=== PATIENT | male | born 1995 | race Caucasian/White ===

== ENCOUNTER 2022-02-25 11:19 | Emergency (ER) | payer OTHER, SELFPAY ==
[2022-02-25 13:15] VITALS: BP 131/86; PULSE 97; RESP 18; TEMP 37.4; O2SAT 100; BMI 27.3
[2022-02-25 13:33] LABS: UTC Strep Screen (Rapid) Negative (Negative)
[2022-02-25 13:34] LABS: UTC Influenza A Antigen Positive (Negative); UTC Influenza B Antigen Negative (Negative)
--- NOTE | 2022-02-25 13:34 | EXP.UTC ---
Discharge Plan Disposition Patient Disposition: Home, Self-Care Condition: Good Prescriptions Prescriptions: New ifxbrlacxjmnqjy-ehikmrjwz-JS [Bromfed DM] 2-30-10 mg/5 mL Syrup 10 ml PO Q4H PRN (Reason: Cough) Qty: 240 0RF Referrals Follow up/Referrals: Provider,Referral, [Primary Care Provider] - See instructions Activity Restrictions/Add. Instructions Additional Instructions/Restrictions: Too late to start Tamiflu. Most effective when started within 48 hours of symptoms onset Lots of rest Increase Fluids water, Gatorade, powerade, pedialyte,if infant/toddler/child Alternate Tylenol and / or ibuprofen as discussed for fever, aches, chills Follow up IMMEDIATELY with your family doctor for new or worsening Symptoms OR no noticeable improvement over the next 48-72 hours, 911 for difficulty or breathing You or your child area contagious until no fever, aches, chills for 24 hours with medication for symptoms Help Prevent the spread of influenza: ?Wash your hands often. Use soap and water. Wash your hands after you use the bathroom, change a child's diapers, or sneeze. Wash your hands before you prepare or eat food. Use gel hand cleanser that has 60% alcohol, when soap and water are not available. Do not touch your eyes, nose, or mouth unless you have washed your hands first. Cover your mouth when you sneeze or cough. Cough into a tissue or the bend of your arm. If you use a tissue, throw it away immediately and wash your hands. Clean shared items with a germ-killing aircraft cleaner. Clean table surfaces, doorknobs, and light switches. Do not share towels, silverware, and dishes with people who are sick. Wash bed sheets, towels, silverware, and dishes with soap and water. Wear a mask over your mouth and nose if you are sick. The face mask may help protect others from becoming infected with the flu. Wear the mask when in common areas of your home or if you seek care with a healthcare provider. Stay away from others if you are sick. Stay at home until 24 hours after your fever and symptoms are gone. Clinical Impressions Clinical Impression: Influenza A Stand Alone Forms Stand Alone Forms: Work/School Release Instructions Patient Instructions: DI for Influenza -- Adult, DI for Fever (Symptom) -- Adult Discharge ED Provider: Ju Porter [facility] HPI General Stated complaint: body aches, sore throat, fatigue Mode of Arrival: Ambulatory Source of Information: Patient Limitations: No Limitations Time Seen by Provider: 02/25/22 13:34 Description of Symptoms (Recalled from Triage Doc. by RN): PATIENT C/O SORE THROAT, FATIGUE, DIZZINESS, COUGH, SWEATING AND BODY ACHES SINCE THURSDAY HEENT Symptoms (Recalled from RN notes): No Resp Symptoms (Recalled from RN notes): Yes Skin Symptoms (Recalled from RN notes): No MS Symptoms (Recalled from RN notes): No Functional Status (Recalled from RN notes): WNL History of Present Illness Provider Complaint: Patient states that he started feeling bad on Thursday States that he has been having body aches, chills, sore throat and fatigue and sweating on and off when his fever breaks States that yesterday he felt a little dizzy at times when he had a fever and went to [facility] and they tested him for flu and was negative but today he was still feeling bad so he came back in Related Data Previous Rx's Medication Instructions Recorded hciaygxnvscvvoh-xzpwoojjowiybdq-II 10 ml PO Q4H PRN Cough #240 mL 02/25/22 2 mg-30 mg-10 mg/5 mL oral syrup (Bromfed DM) Allergies Allergy/AdvReac Type Severity Reaction Status Date / Time No Known Allergies Allergy Verified 02/25/22 13:30 Worker's Comp Is this a Worker's Comp case?: No [facility] Medical History (Updated 02/25/22 @ 13:38 by Ju Porter APRN) No significant past
[2022-02-25 13:37] VITALS: BP 131/86; PULSE 97; RESP 18; TEMP 37.4; O2SAT 100
== END 2022-02-25 13:47 | disposition home or self-care (01) ==
PROVIDERS: Emergency Provider Nurse Practitioner
DX: J10.1 Influenza due to other identified influenza virus with other respiratory manifestations (principal); R42 Dizziness and giddiness; R50.9 Fever, unspecified; M79.10 Myalgia, unspecified site; R61 Generalized hyperhidrosis; R53.82 Chronic fatigue, unspecified; R51.9 Headache, unspecified
CPT/HCPCS: 87804; 87880; 99213; G0463